=== PATIENT | male | born 1985 | race Caucasian/White ===

== ENCOUNTER 2025-09-21 22:23 | Emergency (ER) | payer OTHER ==
[~2025-09-21] VITALS: Ht 167.6 cm; Wt 99.8 kg
[2025-09-21 23:32] VITALS: BP 136/84; TEMP 98.2
[2025-09-21] MEDS ORDERED: SULF1TAB48 PO (23:39)
[2025-09-21] MEDS ORDERED: CEPH-570 PO (23:39)
[2025-09-21 23:51] VITALS: O2SAT 99
== END 2025-09-21 23:52 | disposition home or self-care (01) ==
LOC: ER 22:30
DX: L03.115 Cellulitis of right lower limb (principal); I10 Essential (primary) hypertension; E11.9 Type 2 diabetes mellitus without complications